=== PATIENT | female | born 1990 | race Caucasian/White ===

== ENCOUNTER 2016-12-23 07:56 | Emergency (ER) ==
[2016-12-23 08:02] VITALS: BP 128/72
[2016-12-23 08:13] LABS: URINE SOURCE CLEAN CATCH
[2016-12-23 08:18] LABS: BILIRUBIN URINE NEGATIVE (NEGATIVE); BLOOD URINE NEGATIVE (NEGATIVE); CLARITY CLEAR (CLEAR); COLOR YELLOW; GLUCOSE URINE NEGATIVE (NEGATIVE); LEUKOCYTES URINE 1+ (NEGATIVE); NITRITE URINE NEGATIVE (NEGATIVE); PROTEIN URINE TRACE mg/dL (NEGATIVE); SP GRAVITY URINE 1.005; UROBILINOGEN URINE NORMAL
[2016-12-23 08:25] LABS: URINE CULTURE PL NEEDED? YES; URINE EPITHELIAL CELLS >10 /HPF (<10); URINE RBC <10 /HPF (<10)
[2016-12-23 09:10] LABS: MANUAL DIFF NEEDED? NO
[2016-12-23 09:13] LABS: BASO% 0.2 % (0.0-0.8); EOS# 0.13 X1000 (0.0-0.7); EOS% 1.3 % (0.0-10.0); HEMATOCRIT 40.6 % (37.0-47.0); HEMOGLOBIN 14.2 g/dL (12.0-16.0); IMM GRAN# 0.03 X1000 (0.0-0.04); IMM GRAN% 0.3 % (0.0-0.5); LYMPH# 1.44 X1000 (1.2-3.4); LYMPH% 14.7 % (20.5-51.1); MCH 32.3 PG (27-31); MCV 92.5 FL (81-99); MONO% 5.1 % (1.7-9.3); MPV 9.8 FL (7.4-10.4); NEUT% 78.4 % (42.2-75.2); PLT 286 X1000 (130-400); RBC 4.39 XMIL (4.2-5.4)
[2016-12-23] MEDS ORDERED: ROCEPHIN IM ONE (09:38)
[2016-12-23] MEDS ORDERED: XYLOCAINE-MPF 1% INJ ONE (09:38)
--- NOTE | 2016-12-23 09:43 | PROVIDER DOCUMENTATION ---
HPI-Female /OB/Breast - General Chief Complaint: Abdominal Pain Stated Complaint: 5 WKS PREG/CRAMPING Time Seen by Provider: 12/23/16 08:01 Source: reports: patient Allergies/Adverse Reactions: Patient Allergies Allergy/AdvReac Type Severity Reaction Status Date / Time No Known Allergies Allergy Verified 10/23/16 01:46 Home Medications: Home Medication List Medication Instructions Recorded Confirmed Last Taken Type Ondansetron HCl [Zofran] 1 - 2 tab PO Q6H PRN PRN #15 tablet 10/23/16 Unknown Rx Nitrofurantoin Monohyd/M-Cryst 100 mg PO BID #14 capsule 12/23/16 Unknown Rx [Macrobid 100 mg Capsule] - History of Present Illness-Female /OB Nature of Presenting Problem: Report lower bad pain since yesterday. Reports 5 week preg. No OB care yet. Denies vag bleeding and no fluid leakage. Location of complaint: reports: suprapubic Radiation: reports: none Quality of Pain: reports: cramping Onset/Duration: reports: 24 hours ago Timing: reports: still present Context/Activities at Onset: reports: none Vaginal Symptoms: reports: no symptoms. denies: discharge, foul odor, itching, passing clots/tissue Vaginal Bleeding Amount: None Urinary Symptoms: reports: no symptoms Related Symptoms: reports: pelvic pain, abdominal pain. denies: vaginal fluid leakage, uterine contractions, vaginal bleeding Leakage of Fluid: none Similar Symptoms Previously?: No Recently seen or treated by another doctor?: No Review of Systems - Adult - REVIEW OF SYSTEMS - ADULT Constitutional: reports: no symptoms reported Eyes: reports: no symptoms reported Ears, Nose, Mouth & Throat: reports: no symptoms reported Cardiovascular: reports: no symptoms reported Respiratory: reports: no symptoms reported Gastrointestinal: reports: see HPI, abdominal pain Genitourinary: reports: no symptoms reported Musculoskeletal: reports: no symptoms reported Integumentary: reports: no symptoms reported Neurological: reports: no symptoms reported Psychiatric: reports: no symptoms reported Endocrine: reports: no symptoms reported Hematologic/Lymphatic: reports: no symptoms reported Allergic/Immunologic: reports: no symptoms reported All Other Systems: Reviewed and Negative Past History - Adult - PAST MEDICAL HISTORY-ADULT Review of Records: reports: Nursing Assessment Review, Medications Reviewed Endocrine/Immune: reports: denies history - IMMUNIZATION STATUS Childhood Immunizations: See Nurse Assessment Flu Vaccine: See Nurse Assessment Physical Exam-General - PHYSICAL EXAM-ADULT Initial Vital Signs Reviewed: Yes - CONSTITUTIONAL General Appearance: appears well, alert, no apparent distress - EYES Eyes: PERRL/EOMI, pink conjunctivae - HEAD, EARS, NOSE, MOUTH & THROAT HENMT: normocephalic/atraumatic, moist mucous membranes, normal ENT inspection - NECK Neck: non-tender, full range of motion, supple - RESPIRATORY Respiratory: chest non-tender, lungs clear, normal breath sounds, no pleuratic chest pain, no respiratory distress, no accessory muscle use - CARDIOVASCULAR Cardiovascular: normal peripheral pulses, regular rate, rhythm, no edema, no gallop, no JVD, no murmur - GASTROINTESTINAL (ABDOMEN) Abdominal Exam: normal bowel sounds, non tender, soft, no organomegaly, no pulsatile mass, tenderness (Mild suprapubic tenderness, no gaurding adn no rebound.). negative: distended, guarding, rigid, rebound - MUSCULOSKELETAL Back Exam: normal inspection, no CVA tenderness, no vertebral tenderness, CVA tenderness Extremity: normal range of motion, non-tender, normal gait, normal inspection - SKIN Integumentary: normal color, normal turgor, warm/dry - PSYCHIATRIC Psych/Mental Status: normal mood/affect, normal thought content, normal thought process, oriented x 3 Progress - PLAN OF CARE/RESULTS Progress/Plan/Lab Results: Laboratory Results - last 24 hr 12/23/16 12/23/16 12/23/16 08:00 08:00 08:56 WBC RBC Hgb Hct MCV MCH MCHC RDW Std Deviation Plt Count MPV Immature Gran % (Auto) Neut % (Auto) Lymph % (Auto) [place] % (Auto) Eos % (Auto) Baso % (Auto) Immature Gran # (Auto) Neut # (Auto) Lymph # (Auto) [place] # (Auto) Eos # (Auto) Baso # (Auto) Ser , Semi-Qnt 320.6 Urine Source CLEAN CATCH Urine Color YELLOW Urine Clarity CLEAR Urine pH 7.0 Ur Specific [place] 1.005 Urine Protein TRACE A Urine Ketones NEGATIVE Urine Blood NEGATIVE Urine Nitrite NEGATIVE Urine Bilirubin NEGATIVE Urine Urobilinogen NORMAL Urine Microscopic RBC <10 Urine WBC 1+ A Urine Microscopic WBC 10-20 A Ur Epithelial Cells >10 A Urine Bacteria 1+ Urine Glucose NEGATIVE Urine Test POSITIVE Blood Type 12/23/16 12/23/16 08:56 08:56 WBC 9.79 RBC 4.39 Hgb 14.2 Hct 40.6 MCV 92.5 MCH 32.3 H MCHC 35.0 RDW Std Deviation 13.6 Plt Count 286 MPV 9.8 Immature Gran % (Auto) 0.3 Neut % (Auto) 78.4 H Lymph % (Auto) 14.7 L [place] % (Auto) 5.1 Eos % (Auto) 1.3 Baso % (Auto) 0.2 Immature Gran # (Auto) 0.03 Neut # (Auto) 7.67 H Lymph # (Auto) 1.44 [place] # (Auto) 0.50 Eos # (Auto) 0.13 Baso # (Auto) 0.02 Ser , Semi-Qnt Urine Source Urine Color Urine Clarity Urine pH Ur Specific [place] Urine Protein Urine Ketones Urine Blood Urine Nitrite Urine Bilirubin Urine Urobilinogen Urine Microscopic RBC Urine WBC Urine Microscopic WBC Ur Epithelial Cells Urine Bacteria Urine Glucose Urine Test Blood Type O POSITIVE Orders Category Date Time Status US OBS COMPLETE < 14 WKS [US] Stat Exams 12/23/16 08:32 Draft ABORH [BBK] Stat Lab 12/23/16 08:56 Completed CBC WITH DIFF [HEME] Stat Lab 12/23/16 08:56 Completed TEST-URINE [PREG] Stat Lab 12/23/16 08:00 Completed QUANT TEST Stat Lab 12/23/16 08:[address] W/POSS RFLX CULT [URINALYSIS] Stat Lab 12/23/16 08:00 Completed URINE CULTURE [RM] Routine Lab 12/23/16 08:25 Ordered CefTRIAXONE [Rocephin] Med 12/23/16 09:38 Discontinued 1 gm IM NOW ONE Lidocaine 1% Pf [Xylocaine-Mpf 1%] Med 12/23/16 09:38 Discontinued 5 ml INJ NOW ONE Vital Signs Temp Pulse Resp BP Pulse Ox 12/23/16 07:59 97.9 F 99 H 18 128/72 100 No Known Allergies Allergy (Verified 10/23/16 01:46) Ondansetron HCl [Zofran] 1 - 2 tab PO Q6H PRN PRN #15 tablet 10/23/16 Laboratory 12/23/16 12/23/16 12/23/16 08:56 08:56 08:56 WBC 9.79 RBC 4.39 Hgb 14.2 Hct 40.6 MCV 92.5 MCH 32.3 H MCHC 35.0 RDW Std Deviation 13.6 Plt Count 286 MPV 9.8 Immature Gran % (Auto) 0.3 Neut % (Auto) 78.4 H Lymph % (Auto) 14.7 L [place] % (Auto) 5.1 Eos % (Auto) 1.3 Baso % (Auto) 0.2 Immature Gran # (Auto) 0.03 Neut # (Auto) 7.67 H Lymph # (Auto) 1.44 [place] # (Auto) 0.50 Eos # (Auto) 0.13 Baso # (Auto) 0.02 Ser , Semi-Qnt 320.6 Urine Source Urine Color Urine Clarity Urine pH Ur Specific [place] Urine Protein Urine Ketones Urine Blood Urine Nitrite Urine Bilirubin Urine Urobilinogen Urine Microscopic RBC Urine WBC Urine Microscopic WBC Ur Epithelial Cells Urine Bacteria Urine Glucose Urine Test Blood Type O POSITIVE 12/23/16 12/23/16 08:00 08:00 WBC RBC Hgb Hct MCV MCH MCHC RDW Std Deviation Plt Count MPV Immature Gran % (Auto) Neut % (Auto) Lymph % (Auto) [place] % (Auto) Eos % (Auto) Baso % (Auto) Immature Gran # (Auto) Neut # (Auto) Lymph # (Auto) [place] # (Auto) Eos # (Auto) Baso # (Auto) Ser , Semi-Qnt Urine Source CLEAN CATCH Urine Color YELLOW Urine Clarity CLEAR Urine pH 7.0 Ur Specific [place] 1.005 Urine Protein TRACE A Urine Ketones NEGATIVE Urine Blood NEGATIVE Urine Nitrite NEGATIVE Urine Bilirubin NEGATIVE Urine Urobilinogen NORMAL Urine Microscopic RBC <10 Urine WBC 1+ A Urine Microscopic WBC 10-20 A Ur Epithelial Cells >10 A Urine Bacteria 1+ Urine Glucose NEGATIVE Urine Test POSITIVE Blood Type - ULTRASOUND (By Radiology) 2 US Study: Pelvic Impression: Abnormal US Results: Details see Radiology reports Departure - Departure Time of Disposition Order: 10:20 DIAGNOSIS: Threatened UTI (urinary tract infection) Qualifiers: Urinary tract infection type: acute cystitis Hematuria presence: without hematuria Qualified Code(s): N30.00 - Acute cystitis without hematuria Disposition: HOME 01 Certified Medical Emergency: Emergent Condition: Stable Additional Instructions: Follow up with OB [facility] for further management in 2 days. Return to ER if your symptoms worsen. Prescriptions: Nitrofurantoin Monohyd/M-Cryst [Macrobid 100 mg Capsule] 100 mg PO BID #14 capsule Referrals: None,PCP [Primary Care Provider] - Manuela Ledbetter MD [STAFF PHYSICIAN] -
--- NOTE | 2016-12-23 10:12 | Diag Imaging Result Document ---
PROCEDURE NAME: US OBS COMPLETE < 14 WKS - 12/23/2016 ENDOVAGINAL OB ULTRASOUND, 12/23/2016: COMPARISON: None. FINDINGS: There is a positive test. The quantitative hCG level is 320. There is an abnormal, crescent shaped gestational sac present in the endometrium at the uterine fundus. This measures about 1.63 cm. This corresponds with 6 weeks 0 days gestation. No definite pole. No yolk sac visible. There is a probable corpus luteum in the right ovary measuring 1.5 cm. The left ovary is obscured. The right ovary measures 3.6 x 2.4 x 2.1 cm. No free fluid. There are a few nabothian cysts measuring up to 7 mm in the uterine cervix. IMPRESSION: 1. Abnormal gestational sac in the endometrium with no yolk sac or pole. Followup imaging and clinical followup recommended. 2. Probable corpus luteum in the right ovary. 3. No pelvic free fluid.
== END 2016-12-23 10:42 | disposition home or self-care (01) ==
LOC: P.ED 07:56
DX: O20.0 Threatened abortion (principal); O23.11 Infections of bladder in pregnancy, first trimester; N30.00 Acute cystitis without hematuria; O26.891 Other specified pregnancy related conditions, first trimester; R10.2 Pelvic and perineal pain; R10.9 Unspecified abdominal pain; R10.819 Abdominal tenderness, unspecified site; Z3A.01 Less than 8 weeks gestation of pregnancy
CPT/HCPCS: 36415; 76801; 81001; 81025; 84702; 85025; 86900; 86901; 87088; 96372; J0696